=== PATIENT | female | born 1990 | race African-American/Black ===

== ENCOUNTER 2022-01-27 03:57 | Inpatient (IN) ==
[2022-01-27] MEDS ORDERED: LACTATED RINGERS 500 ML IV PRN (04:27)
[2022-01-27] MEDS ORDERED: LACTATED RINGERS 250 ML IV ONE (04:27)
[2022-01-27] MEDS ORDERED: TRANEXAMIC ACID 1,000 MG in SODIUM CHLORIDE 0.9% 100 ML IV PRN (04:27)
[2022-01-27] MEDS ORDERED: OXYTOCIN/LR 20 UNIT/1,000 ML BAG IV ONE ×3 (04:27→05:48)
[2022-01-27] MEDS ORDERED: ONDANSETRON 4 MG/2 ML VIAL IV PRN ×2 (04:27→05:48)
[2022-01-27] MEDS ORDERED: METHYLERGONOVINE 0.2 MG/1 ML AMP IM PRN (04:27)
[2022-01-27] MEDS ORDERED: CARBOPROST TROMETHAMINE 250 MCG/ML AMP IM PRN (04:27)
[2022-01-27] MEDS ORDERED: miSOPROStoL 200 MCG TABLET RECTAL PRN (04:27)
[2022-01-27] MEDS ORDERED: LACTATED RINGERS 1,000 ML IV SCH (04:30)
[2022-01-27 05:25] LABS: Cord Arterial Blood HCO3 18.2 MMOL/L; Cord Venous Blood HCO3 19.1 MMOL/L; Cord Venous Blood PCO2 33.3 MMHG; Cord Venous Blood PO2 23.9
[2022-01-27] MEDS ORDERED: BISACODYL 10 MG SUPP RECTAL PRN (05:48)
[2022-01-27] MEDS ORDERED: HYDROCORTISONE 2.5% RECTAL CREAM 30 GM TUBE TOP PRN (05:48)
[2022-01-27] MEDS ORDERED: MEASLES/MUMPS/RUBELLA VACCINE 0.5 ML VIAL SUBCUT ONE (05:48)
[2022-01-27] MEDS ORDERED: ACETAMINOPHEN 325 MG TABLET PO PRN (05:48)
[2022-01-27] MEDS ORDERED: WITCH HAZEL PADS 100/JAR TOP PRN (05:48)
[2022-01-27] MEDS ORDERED: RHO(D) IMMUNE GLOBULIN 300 MCG SYRINGE IM ONE (05:48)
[2022-01-27] MEDS ORDERED: LANOLIN 50% CREAM 0.3 OZ TUBE TOP PRN (05:48)
[2022-01-27] MEDS ORDERED: oxyCODONE/ACETAMINOPHEN 5-325 MG TABLET PO PRN (05:48)
[2022-01-27] MEDS ORDERED: BENZOCAINE 20%/MENTHOL 0.5% SPRAY 56 GM CAN TOP PRN (05:48)
[2022-01-27] MEDS ORDERED: DIPH/TET/ACEL PERT BOOSTER VACCINE 0.5 ML VIAL IM ONE (05:48)
[2022-01-27 06:12] LABS: Basophils % 0.2 % (0.0-0.8); Eosinophils # 0.1 10*3/uL (0.0-0.87); Eosinophils % 0.5 % (0.00-10.9); Hematocrit 36.7 VOL% (35.7-47.0); Hemoglobin 12.6 GM/DL (12.0-16.0); Immature Granulocytes % 1.2 %; Immature Granulocytes Absolute 0.17 #; Lymphocytes # 4.3 10*3/uL (1.4-4.0); Lymphocytes % 29.2 % (21.3-54.2); Mean Corpuscular HGB Conc 34.3 GM/DL (32-36); Mean Corpuscular Volume 78.6 FL (87-102); Monocytes # 0.9 10*3/uL (0.11-0.8); Monocytes % 6.1 % (1.7-12.7); Neutrophils % 62.8 % (38.7-73.9); Platelet Count 189 T/CUMM (130-400); Red Blood Count 4.67 MC/CUMM (3.8-5.5); Red Cell Distribution Width 15.6 % (9.3-17.3); White Blood Count 14.6 T/CUMM (4-12)
[2022-01-27] MEDS: oxyCODONE/ACETAMINOPHEN 5-325 MG TABLET PO PRN ×2 (06:13→18:35)
[2022-01-27 06:29] LABS: Lymphocytes 30 % (20-55); Platelet Estimate Adequate; Total Cells Counted 100
[2022-01-27 06:32] LABS: Alanine Aminotransferase 14 U/L (13-56); Albumin 2.8 G/DL (3.4-5.0); Alkaline Phosphatase 153 U/L (45-117); Aspartate Amino Transferase 14 U/L (0-37); Bilirubin,Total < 0.39 MG/DL (0.20-1.00); Blood Urea Nitrogen 8 MG/DL (7-18); Calcium 9.1 MG/DL (8.5-10.1); Carbon Dioxide 16 MMOL/L (21-32); Chloride 108 MMOL/L (98-107); Estimated Glom Filtration Rate 140 ML/MIN; Glucose 146 MG/DL (74-106); Osmolality,Calculated 273.8 MOS/KG (273-304); Potassium 3.5 MMOL/L (3.5-5.1); Sodium 137 MMOL/L (136-145); Total Protein 7.4 G/DL (6.4-8.2)
[2022-01-27] MEDS: DOCUSATE SODIUM 100 MG CAPSULE PO SCH ×2 (08:05→21:10)
[2022-01-27] MEDS: IBUPROFEN 800 MG TABLET PO PRN (09:29)
[2022-01-28] MEDS: IBUPROFEN 800 MG TABLET PO PRN ×3 (00:22→20:16)
[2022-01-28 06:18] LABS: Basophils % 0.3 % (0.0-0.8); Eosinophils # 0.1 10*3/uL (0.0-0.87); Eosinophils % 0.5 % (0.00-10.9); Hematocrit 29.5 VOL% (35.7-47.0); Hemoglobin 10.2 GM/DL (12.0-16.0); Immature Granulocytes % 0.8 %; Immature Granulocytes Absolute 0.12 #; Lymphocytes # 3.6 10*3/uL (1.4-4.0); Lymphocytes % 22.8 % (21.3-54.2); Mean Corpuscular HGB Conc 34.6 GM/DL (32-36); Mean Corpuscular Volume 78.5 FL (87-102); Monocytes # 0.9 10*3/uL (0.11-0.8); Monocytes % 5.6 % (1.7-12.7); Platelet Count 155 T/CUMM (130-400); Red Blood Count 3.76 MC/CUMM (3.8-5.5); Red Cell Distribution Width 15.3 % (9.3-17.3); White Blood Count 15.7 T/CUMM (4-12)
[2022-01-28 06:40] LABS: Hypochromia Slight; Microcytosis Slight
[2022-01-28 06:41] LABS: Platelet Estimate Adequate
[2022-01-28] MEDS: DOCUSATE SODIUM 100 MG CAPSULE PO SCH ×2 (08:14→20:17)
[2022-01-28] MEDS: oxyCODONE/ACETAMINOPHEN 5-325 MG TABLET PO PRN ×2 (08:25→13:55)
[2022-01-29 08:26] VITALS: BP 146/84
[2022-01-29] MEDS: DOCUSATE SODIUM 100 MG CAPSULE PO SCH (08:52)
[2022-01-29] MEDS: oxyCODONE/ACETAMINOPHEN 5-325 MG TABLET PO PRN (09:52)
== END 2022-01-29 12:31 | disposition home or self-care (01) | DRG 807 ==
LOC: N.LD 03:57 → N.OB 07:35
PROVIDERS: ADMIT Obstetrics & Gynecology; ATTEND Obstetrics & Gynecology